=== PATIENT | female | born 1980 | race Caucasian/White ===

== ENCOUNTER 2023-12-11 12:01 | Emergency (ER) | payer BC ==
[~2023-12-11] VITALS: Ht 170.2 cm; Wt 66.2 kg
[2023-12-11] MEDS ORDERED: ONDANSETRON 4 MG/2 ML VIAL ONE (12:15)
[2023-12-11] MEDS ORDERED: HYDROMORPHONE 1 MG/1 ML DISP.SYRIN ONE (12:16)
[2023-12-11] MEDS ORDERED: Birth control PO (12:21)
[2023-12-11] MEDS: ONDANSETRON 4 MG/2 ML VIAL IV ONE (12:23)
[2023-12-11] MEDS: HYDROMORPHONE 1 MG/1 ML DISP.SYRIN IV ONE (12:23)
[2023-12-11] MEDS ORDERED: HYDR-3980 PO (13:31)
[2023-12-11 14:41] VITALS: BP 115/71; O2SAT 100
== END 2023-12-11 13:50 | disposition home or self-care (01) ==
LOC: ER 12:03
DX: S82.851A Displaced trimalleolar fracture of right lower leg, initial encounter for closed fracture (principal); Z79.899 Other long term (current) drug therapy; W01.0XXA Fall on same level from slipping, tripping and stumbling without subsequent striking against object, initial encounter; Y93.89 Activity, other specified; Y92.89 Other specified places as the place of occurrence of the external cause; Y99.8 Other external cause status
CPT/HCPCS: 29515; 73600; 96374; 96375; 99284; J1170; J2405; A4606; A4663